=== PATIENT | male | born 1945 | race Caucasian/White ===

== ENCOUNTER 2018-02-16 12:52 | Day surgery (SDC) | payer MEDICARE, BC ==
[~2018-02-16] VITALS: Ht 193 cm; Wt 75.0 kg
[2018-02-16] MEDS ORDERED: LACTATED RINGERS 1,000 ML IV SCH ×2 (13:37→13:38)
[2018-02-16] MEDS ORDERED: TAMS0.4C2 PO (13:49)
[2018-02-16] MEDS ORDERED: GABA300S PO (13:49)
[2018-02-16] MEDS ORDERED: OXYB5SYR2 PO (13:49)
[2018-02-16] MEDS ORDERED: OMEP-110 PO (13:49)
[2018-02-16] MEDS ORDERED: HCTZ (13:49)
[2018-02-16] MEDS ORDERED: OXYC5TAB3 PO (13:49)
[2018-02-16] MEDS ORDERED: CHOL500045 PO (13:49)
[2018-02-16] MEDS ORDERED: KDUR PO (13:49)
[2018-02-16] MEDS ORDERED: SIMV40TA3 PO (13:49)
[2018-02-16] MEDS ORDERED: DESO15CR21 TP (13:49)
[2018-02-16] MEDS ORDERED: SERT100T5 PO (13:49)
[2018-02-16 13:54] VITALS: BP 105/73
[2018-02-16] MEDS ORDERED: PLEASE ENTER HEIGHT AND WEIGHT MC SCH (14:00)
[2018-02-16] MEDS ORDERED: PROPOFOL 10 MG/ML, 50ML ONE (14:13)
[2018-02-16] MEDS ORDERED: MIDAZOLAM 1 MG/ML, 2ML IV PRN (15:00)
[2018-02-16] MEDS ORDERED: FENTANYL PF 100 MCG/2ML IV PRN (15:00)
[2018-02-16] MEDS ORDERED: EPHEDRINE 50 MG/ML, 1ML IVPush PRN (15:00)
[2018-02-16] MEDS ORDERED: ONDANSETRON ODT 8 MG PO PRN (15:00)
== END 2018-02-16 17:25 | disposition home or self-care (01) ==
LOC: OUT 12:52
DX: K55.20 Angiodysplasia of colon without hemorrhage (principal); K26.9 Duodenal ulcer, unspecified as acute or chronic, without hemorrhage or perforation; K31.819 Angiodysplasia of stomach and duodenum without bleeding; K22.70 Barrett's esophagus without dysplasia; D64.9 Anemia, unspecified; I25.10 Atherosclerotic heart disease of native coronary artery without angina pectoris; Z72.89 Other problems related to lifestyle
CPT/HCPCS: 43239; 44369; 88305; 93005; J2704

== ENCOUNTER → 2020-03-21 | Outpatient (CLI) | payer MEDICARE, BC ==
[~2020-03-21] MED LIST: CHOL500045 PO; DESO15CR21 TP; GABA300S PO; HCTZ; KDUR PO; OMEP-110 PO; OXYB5SYR2 PO; OXYC5TAB3 PO; SERT100T32 PO; SIMV40TA20 PO; TAMS0.4C2 PO
== END | disposition home or self-care (01) ==
LOC: CFH 10:06
PROVIDERS: ATTEND Internal Medicine
DX: J84.9 Interstitial pulmonary disease, unspecified (principal); K44.9 Diaphragmatic hernia without obstruction or gangrene; M47.819 Spondylosis without myelopathy or radiculopathy, site unspecified; M51.35 Other intervertebral disc degeneration, thoracolumbar region
CPT/HCPCS: 71250